=== PATIENT | female | born 1980 | race Caucasian/White ===

== ENCOUNTER 2022-02-10 21:48 | Emergency (ER) | payer MEDICAID ==
[2022-02-10 22:23] VITALS: BP 141/82; PULSE 117
== END 2022-02-10 23:05 | disposition home or self-care (01) ==
LOC: JP.ED 21:48
DX: N12 Tubulo-interstitial nephritis, not specified as acute or chronic (principal); Z88.5 Allergy status to narcotic agent; Z88.1 Allergy status to other antibiotic agents; Z91.041 Radiographic dye allergy status; Z88.0 Allergy status to penicillin; Z88.2 Allergy status to sulfonamides; Z91.048 Other nonmedicinal substance allergy status
CPT/HCPCS: 81001; 87086; 87088; 87186; 99284

== ENCOUNTER 2024-01-28 23:00 | Emergency (ER) | payer MEDICAID, OTHER ==
[2024-01-28 23:11] VITALS: BP 117/72; PULSE 77
== END 2024-01-29 03:34 | disposition home or self-care (01) ==
LOC: JP.ED 23:00
DX: R68.84 Jaw pain (principal); Z88.5 Allergy status to narcotic agent; Z88.1 Allergy status to other antibiotic agents; Z91.040 Latex allergy status; Z91.041 Radiographic dye allergy status; Z88.0 Allergy status to penicillin; Z88.2 Allergy status to sulfonamides; Z88.8 Allergy status to other drugs, medicaments and biological substances; Z91.048 Other nonmedicinal substance allergy status
CPT/HCPCS: 70486; 73070-26-RT; 73070-RT; 99284